=== PATIENT | male | born 1955 | race Two or more races ===

== ENCOUNTER → 2020-11-23 | Outpatient (CLI) | payer MEDICARE ==
[~2020-11-23] MED LIST: ALBU8.5H8 INH; ATOR40TA78 PO; EMPA25TA PO; SILD50TA PO; XANAX PO
[2020-11-23 16:44] LABS: ALANINE AMINOTRANSFERASE 39 U/L (12-78); ALBUMIN 3.9 g/dL (3.4-5.0); ANION GAP 4 mmol/L (5-15); CALCIUM 9.1 mg/dL (8.5-10.1); CHLORIDE 108 mmol/L (98-107); CREATININE 1.07 mg/dL (0.7-1.3)
[2020-11-23 16:47] LABS: ALKALINE PHOSPHATASE 103 U/L (45-117); BILIRUBIN,TOTAL 0.8 mg/dL (0.2-1.0); TOTAL PROTEIN 7.8 g/dL (6.4-8.2)
== END | disposition home or self-care (01) ==
LOC: STAR 15:00
PROVIDERS: ATTEND Internal Medicine Gastroenterology
DX: Z01.812 Encounter for preprocedural laboratory examination (principal); Z20.828 Contact with and (suspected) exposure to other viral communicable diseases; K85.90 Acute pancreatitis without necrosis or infection, unspecified
CPT/HCPCS: 80053; 87635; 93005

== ENCOUNTER 2020-11-28 06:32 | Day surgery (SDC) | payer MEDICARE, MEDICAID ==
[~2020-11-28] VITALS: Ht 172.7 cm; Wt 75.1 kg
[2020-11-28] MEDS ORDERED: HYDROcodone/APAP 7.5-325MG/15ML UDC PO PRN (07:30)
[2020-11-28] MEDS ORDERED: DIAZEPAM 5 MG/ML, 2ML IVPush PRN (07:30)
[2020-11-28] MEDS ORDERED: ACETAMINOPHEN 325 MG TABLET PO PRN (07:30)
[2020-11-28] MEDS ORDERED: LORazepam 2 MG/ML, 1ML IVPush PRN (07:30)
[2020-11-28] MEDS ORDERED: EPHEDRINE 50 MG/ML, 1ML IM PRN (07:30)
[2020-11-28] MEDS ORDERED: MEPERIDINE/PF 25MG/0.5ML IVPush PRN (07:30)
[2020-11-28] MEDS ORDERED: FENTANYL PF 100 MCG/2ML IV PRN (07:30)
[2020-11-28] MEDS ORDERED: OXYcodone 5 MG/5 ML ORAL.SOL UDC PO PRN (07:30)
[2020-11-28] MEDS ORDERED: METHOCARBAMOL 1,000 MG in DEXTROSE 5% 100 ML IV PRN (07:30)
[2020-11-28] MEDS ORDERED: hydrALAzine 20 MG/ML, 1ML IV PRN (07:30)
[2020-11-28] MEDS ORDERED: EPHEDRINE 50 MG/ML, 1ML IVPush PRN (07:30)
[2020-11-28] MEDS ORDERED: LABETALOL 5MG/ML, 20ML IV PRN (07:30)
[2020-11-28] MEDS ORDERED: CHLORHEXIDINE 15 ML UDC MM ONE (07:30)
[2020-11-28] MEDS ORDERED: HALOPERIDOL 5 MG/ML IV PRN (07:30)
[2020-11-28] MEDS ORDERED: HYDROmorphone 1 MG/ML, 1ML INJ IVPush PRN (07:30)
[2020-11-28] MEDS ORDERED: LACTATED RINGERS 1,000 ML IV SCH (07:30)
[2020-11-28] MEDS ORDERED: DIPHENHYDRAMINE 50 MG/ML, 1ML IVPush PRN (07:30)
[2020-11-28] MEDS ORDERED: METOCLOPRAMIDE 5 MG/ML, 2ML IVPush PRN (07:30)
[2020-11-28] MEDS ORDERED: MIDAZOLAM 1 MG/ML, 2ML IV PRN (07:30)
[2020-11-28] MEDS ORDERED: ALBUTEROL SULFATE 2.5 MG/3 ML NPPB PRN (07:30)
[2020-11-28] MEDS ORDERED: GLYCOPYRROLATE 0.2MG/1ML, 5ML ONE (08:13)
[2020-11-28] MEDS ORDERED: DEXAMETHASONE 4 MG/ML, 5ML ONE (08:13)
[2020-11-28] MEDS ORDERED: MIDAZOLAM 1 MG/ML, 2ML ONE (08:13)
[2020-11-28] MEDS ORDERED: PROPOFOL 10 MG/ML, 20ML ONE (08:22)
[2020-11-28] MEDS ORDERED: ROCURONIUM 10 MG/ML,10ML ONE (08:22)
== END 2020-11-28 10:20 | disposition home or self-care (01) ==
LOC: OUT 06:32
PROVIDERS: ATTEND Internal Medicine Gastroenterology
DX: K85.90 Acute pancreatitis without necrosis or infection, unspecified (principal); K29.50 Unspecified chronic gastritis without bleeding; K90.9 Intestinal malabsorption, unspecified; K57.30 Diverticulosis of large intestine without perforation or abscess without bleeding; K80.20 Calculus of gallbladder without cholecystitis without obstruction; K21.9 Gastro-esophageal reflux disease without esophagitis; E11.9 Type 2 diabetes mellitus without complications; F41.9 Anxiety disorder, unspecified; F32.9 Major depressive disorder, single episode, unspecified; J45.909 Unspecified asthma, uncomplicated; E78.00 Pure hypercholesterolemia, unspecified; I25.10 Atherosclerotic heart disease of native coronary artery without angina pectoris; I25.2 Old myocardial infarction; Z79.84 Long term (current) use of oral hypoglycemic drugs; Z79.899 Other long term (current) drug therapy; Z87.891 Personal history of nicotine dependence; Z91.018 Allergy to other foods; Z98.890 Other specified postprocedural states
CPT/HCPCS: 43239; 43259; 82962; 88305; J1100; J2250; J2704; J7120

== ENCOUNTER → 2021-01-08 | Outpatient (CLI) | payer MEDICARE, MEDICAID ==
[~2021-01-08] MED LIST changes: +ASPI81TA45 PO
[2021-01-08 12:35] LABS: ALANINE AMINOTRANSFERASE 32 U/L (12-78); ALBUMIN 3.9 g/dL (3.4-5.0); ANION GAP 6 mmol/L (5-15); CALCIUM 8.8 mg/dL (8.5-10.1); CHLORIDE 107 mmol/L (98-107)
[2021-01-08 12:38] LABS: ALKALINE PHOSPHATASE 108 U/L (45-117); CREATININE 1.18 mg/dL (0.7-1.3)
== END | disposition home or self-care (01) ==
LOC: STAR 11:23
PROVIDERS: ATTEND Surgery
DX: Z01.818 Encounter for other preprocedural examination (principal); R94.31 Abnormal electrocardiogram [ECG] [EKG]; Z20.822 Contact with and (suspected) exposure to COVID-19
CPT/HCPCS: 36415; 80053; 93005; U0003

== ENCOUNTER 2021-01-14 08:18 | Day surgery (SDC) | payer MEDICAID, MEDICARE ==
[~2021-01-14] VITALS: Ht 172.7 cm; Wt 73.4 kg
[2021-01-14 08:54] VITALS: BP 124/79
[2021-01-14] MEDS ORDERED: BUPIVACAINE/PF-EPI 0.5% 1:200K ONE (08:57)
[2021-01-14] MEDS ORDERED: CHLORHEXIDINE 15 ML UDC MM ONE (09:00)
[2021-01-14] MEDS ORDERED: LACTATED RINGERS 1,000 ML IV SCH (09:30)
[2021-01-14] MEDS ORDERED: MIDAZOLAM 1 MG/ML, 2ML ONE (09:37)
[2021-01-14] MEDS ORDERED: FENTANYL PF 250 MCG/5ML ONE (09:37)
[2021-01-14] MEDS ORDERED: hydrALAzine 20 MG/ML, 1ML IV PRN (10:00)
[2021-01-14] MEDS ORDERED: HYDROcodone/APAP 7.5-325MG/15ML UDC PO PRN (10:00)
[2021-01-14] MEDS ORDERED: MEPERIDINE/PF 25MG/0.5ML IVPush PRN (10:00)
[2021-01-14] MEDS ORDERED: ONDANSETRON 2MG/ML, 2ML IVPush PRN (10:00)
[2021-01-14] MEDS ORDERED: morphine SULFATE 10 MG/ML, 1ML IVPush PRN (10:00)
[2021-01-14] MEDS ORDERED: ACETAMINOPHEN 325 MG TABLET PO PRN (10:00)
[2021-01-14] MEDS ORDERED: LABETALOL 5MG/ML, 20ML IV PRN (10:00)
[2021-01-14] MEDS ORDERED: OXYcodone 5 MG/5 ML ORAL.SOL UDC PO PRN (10:00)
[2021-01-14] MEDS ORDERED: CEFOTETAN 2 GM ONE (10:02)
[2021-01-14] MEDS ORDERED: HYDR-1067 PO (10:06)
[2021-01-14] MEDS ORDERED: PROPOFOL 10 MG/ML, 20ML ONE (10:12)
[2021-01-14] MEDS ORDERED: ROCURONIUM 10MG/ML,5ML ONE (10:12)
[2021-01-14] MEDS ORDERED: NEOSTIGMINE 1 MG/ML, 10ML ONE (10:12)
[2021-01-14] MEDS ORDERED: GLYCOPYRROLATE 0.2MG/1ML, 5ML ONE (10:12)
[2021-01-14] MEDS ORDERED: SUGAMMADEX 200 MG/2 ML IVPush ONE (10:12)
[2021-01-14] MEDS ORDERED: CEFAZOLIN 1,000 MG ONE (10:12)
[2021-01-14] MEDS ORDERED: OXYcodone 5 MG/5 ML ORAL.SOL UDC ONE (10:53)
[2021-01-14] MEDS ORDERED: FENTANYL PF 100 MCG/2ML ONE (10:53)
[2021-01-14] MEDS ORDERED: hydrALAzine 20 MG/ML, 1ML ONE (10:57)
[2021-01-14] MEDS: FENTANYL PF 100 MCG/2ML IV PRN ×2 (11:00→11:06)
== END 2021-01-14 12:25 | disposition home or self-care (01) ==
LOC: OUT 08:18
PROVIDERS: ATTEND Surgery
DX: K81.1 Chronic cholecystitis (principal); E11.9 Type 2 diabetes mellitus without complications; K21.9 Gastro-esophageal reflux disease without esophagitis; I25.10 Atherosclerotic heart disease of native coronary artery without angina pectoris; J45.909 Unspecified asthma, uncomplicated; Z79.82 Long term (current) use of aspirin; Z79.84 Long term (current) use of oral hypoglycemic drugs; Z79.899 Other long term (current) drug therapy; Z91.013 Allergy to seafood; Z95.5 Presence of coronary angioplasty implant and graft; Z98.890 Other specified postprocedural states
CPT/HCPCS: 47562; 82962; 88304; J0360; J0690; J2250; J2704; J2710; J3010

== ENCOUNTER 2021-02-07 13:45 | Outpatient (CLI) | payer MEDICARE ==
[~2021-02-07 13:45] MED LIST changes: +HYDR-1067 PO
== END 2021-02-07 23:59 | disposition home or self-care (01) ==
LOC: CVU 13:45
PROVIDERS: ATTEND Internal Medicine Cardiovascular Disease
DX: I06.1 Rheumatic aortic insufficiency (principal); I65.23 Occlusion and stenosis of bilateral carotid arteries; I10 Essential (primary) hypertension; I25.10 Atherosclerotic heart disease of native coronary artery without angina pectoris
CPT/HCPCS: 93306; 93880